=== PATIENT | female | born 1970 | race African-American/Black ===

== ENCOUNTER 2017-10-05 11:11 | Outpatient (CLI) | payer BC ==
--- NOTE | 2017-10-05 15:26 | MMO ---
BILATERAL SCREENING MAMMOGRAM: Date: 10/05/17 06/30/16 HISTORY: Baseline exam. This patient's mammogram was interpreted with the assistance of computer-aided detection. FINDINGS: Scattered fibroglandular changes of both breasts are noted. There is an approximately 9.0 mm isodense nodular density in the central slightly outer left breast. Margins are obscured. No suspicious calci fications or other signs of malignancy. Within the right breast, in the upper portion of the breast, is an obscured area of nodularity, which is more difficult to localize on the CC projection, but is p robably outer. IMPRESSION: BIRADS 0: Incomplete: Need Additional Imaging Evaluation and/or Prior Mammograms for Comparison Further imaging required. In this case, focal spot views of the areas marked in both breasts to be fo llowed by ultrasound. The facility will notify patient of need for additional imaging services. POS: [facility]
== END 2017-10-05 11:12 | disposition home or self-care (01) ==
LOC: SCSMAMMO 11:11
PROVIDERS: ATTEND Family Medicine
DX: Z12.31 Encounter for screening mammogram for malignant neoplasm of breast (principal)
CPT/HCPCS: 77067

== ENCOUNTER 2017-10-16 14:05 | Outpatient (CLI) | payer BC | END 2017-10-16 14:06 | disposition home or self-care (01) | LOC: BICMAMMO 14:05 | PROVIDERS: ATTEND Family Medicine | DX: R92.2 Inconclusive mammogram (principal) | CPT/HCPCS: 77066; G0279 ==